=== PATIENT | male | born 1955 | race African-American/Black ===

== ENCOUNTER 2018-10-18 16:15 | Inpatient (IN) ==
[2018-10-18] MEDS ORDERED: CARDIZEM IV ONE (16:27)
[2018-10-18] MEDS ORDERED: ASPIRIN PO ONE (16:27)
[2018-10-18] MEDS ORDERED: SODIUM CHLORIDE 0.9% INJ ONE (16:44)
[2018-10-18] MEDS ORDERED: NS 1,000 ML IV ONE (16:44)
[2018-10-18] MEDS ORDERED: PROTONIX IV ONE (16:44)
[2018-10-18 16:48] LABS: BASO# 0.01 X1000 (0.0-0.2); BASO% 0.1 % (0.0-0.8); EOS# 0.11 X1000 (0.0-0.7); EOS% 1.2 % (0.0-10.0); HEMATOCRIT 44.9 % (42.0-52.0); HEMOGLOBIN 15.4 g/dL (14.0-18.0); IMM GRAN# 0.02 X1000 (0.0-0.04); IMM GRAN% 0.2 % (0.0-0.5); LYMPH# 2.96 X1000 (1.2-3.4); LYMPH% 32.1 % (20.5-51.1); MCH 29.2 PG (27-31); MCHC 34.3 g/dL (33-37); MONO# 1.35 X1000 (0.11-0.59); MONO% 14.6 % (1.7-9.3); MPV 10.3 FL (7.4-10.4); NEUT# 4.78 X1000 (1.4-6.5); NEUT% 51.8 % (42.2-75.2); PLT 251 X1000 (130-400); RBC 5.28 XMIL (4.7-6.1); RDW 15.7 % (11.5-14.5); WBC 9.23 X1000 (4.8-10.8)
--- NOTE | 2018-10-18 16:51 | Diag Imaging Result Doc PS360 ---
EXAM: CHEST-PORTABLE INDICATION: CP TECHNIQUE: One view COMPARISON: 11/25/2014 FINDINGS: The lungs are grossly clear. There is no discrete pleural fluid collection or pneumothorax. There is cardiomegaly. Central vasculature is unremarkable. IMPRESSION: Cardiomegaly but no definite acute chest pathology by plain radiograph. Electronically signed by Damien Luis 10/18/2018 4:48 PM
[2018-10-18 17:04] LABS: AGAP 12; ALBUMIN 3.5 g/dL (3.5-5.0); ALKALINE PHOSPHATASE 208 U/L (32-122); BUN 22 mg/dL (8-22); CALCIUM 8.9 mg/dL (8.8-10.2); CHLORIDE 101 mmol/L (98-107); CK PROFILE 124 U/L (24-204); COSMO 274; CREATININE 1.3 mg/dL (0.7-1.2); ESTIMATED GFR > 60; GLUCOSE 100 mg/dL (70-104); GOT 40 U/L (10-34); GPT 26 U/L (10-44); SODIUM 135 mmol/L (136-145); TCO2 22 mmol/L (25-35); TOTAL BILIRUBIN 2.16 mg/dL (0.20-1.00)
[2018-10-18] MEDS ORDERED: LOVENOX 1 MG/KG SUBQ ONE (17:32)
--- NOTE | 2018-10-18 17:35 | PROVIDER DOCUMENTATION ---
This chart was entered by Kelly Marx Scribe, acting as scribe for Viv Quinn CRNP. HPI-Chest Pain - General Chief Complaint: Chest Pain Stated Complaint: CP,SOB,ABD PAIN Time Seen by Provider: 10/18/18 16:25 Source: patient Allergies/Adverse Reactions: Patient Allergies Allergy/AdvReac Type Severity Reaction Status Date / Time No Known Allergies Allergy Verified 10/18/18 16:40 Home Medications: Home Medication List Medication Instructions Recorded Confirmed Last Taken Type Furosemide [Lasix] 80 mg PO QAM 08/19/13 11/02/15 11/01/15 08:00 History Aspirin 81 mg PO QAM 01/27/14 11/02/15 11/01/15 08:00 History Carvedilol [Coreg] 6.25 mg PO BID 01/27/14 11/02/15 11/01/15 20:00 History Hydrocodone/Acetaminophen [[place] 1 each PO 4XDAY 11/25/14 11/02/15 11/01/15 20:00 History 10-325 Tablet] Lisinopril 40 mg PO QAM 11/25/14 11/02/15 11/01/15 08:00 History ATORVAstatin [Lipitor] 40 mg PO QHS 11/28/14 11/02/15 11/01/15 20:00 History Indomethacin 50 mg PO BID #14 capsule 01/16/15 11/02/15 11/01/15 20:00 Rx Clindamycin [Cleocin] 300 mg PO Q6HR #30 capsule 11/02/15 Unknown Rx Hydrocodone/Acetaminophen [[place] 1 each PO Q4-6H PRN PRN #20 tablet 11/02/15 Unknown Rx 10-325 Tablet] - History of Present Illness-CP Nature of Presenting Problem: 63 y/o male with history of MT in 2014 and previous stent placement presents to the ED with complaint of chest pain, SOB, and abdominal pain times three days. 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 No previous history of atrial fibrillation. Chest Pain Radiation: reports: no radiation Onset/Duration: 3 days ago Timing: still present Associated Symptoms: reports: abdominal pain, shortness of breath. denies: diaphoresis, nausea, vomiting Nitro Today/Relief: no nitro taken today Aspirin Treatment Today: no aspirin today Prior Chest Pain/Cardiac Workup: reports: heart attack (2014) Similar Symptoms Previously?: No Recently Seen Here or By Another Healthcare Provider: No Review of Systems - Adult - REVIEW OF SYSTEMS - ADULT Constitutional: denies: chills, fever, night sweats Eyes: reports: no symptoms reported Ears, Nose, Mouth & Throat: reports: no symptoms reported Cardiovascular: reports: chest pain, palpitations. denies: syncope Respiratory: reports: shortness of breath. denies: hemoptysis, wheezing Gastrointestinal: reports: abdominal pain. denies: diarrhea, nausea, vomiting Genitourinary: reports: no symptoms reported Musculoskeletal: reports: no symptoms reported Integumentary: reports: no symptoms reported Neurological: reports: no symptoms reported Psychiatric: reports: no symptoms reported Endocrine: reports: no symptoms reported Hematologic/Lymphatic: reports: no symptoms reported Allergic/Immunologic: reports: no symptoms reported All Other Systems: Reviewed and Negative Past History - Adult - PAST MEDICAL HISTORY-ADULT Review of Records: reports: Old Records Reviewed, Nursing Assessment Review, Medications Reviewed Major Childhood Illnesses: reports: denies history Cardiovascular: reports: CAD, CHF, HTN Respiratory: reports: asthma, COPD, sleep apnea Gastrointestinal: reports: denies history Obstetrical/Gynecological: reports: denies history Genitourinary: reports: denies history Musculoskeletal: reports: denies history Neurological: reports: denies history Endocrine/Immune: reports: denies history Other Conditions: reports: denies history - PRIOR SURGERIES/PROCEDURES Surgical/Procedure History: reports: cholecystectomy, cardiac stent - IMMUNIZATION STATUS Childhood Immunizations: See Nurse Assessment Flu Vaccine: See Nurse Assessment - FAMILY HISTORY Family History: reviewed, not pertinent - SOCIAL HISTORY Smoking: cigarettes, less than 1 pack/day Provider spent 3-5 mins advising pt. on dangers of tobacco.: Discussed manners to quit use, and f/u contacts for add'l counseling. Substance Use: denies Physical Exam-General - PHYSICAL EXAM-ADULT Initial Vital Signs Reviewed: Yes - CONSTITUTIONAL General Appearance: alert - HEAD, EARS, NOSE, MOUTH & THROAT HENMT: normocephalic/atraumatic, moist mucous membranes - NECK Neck: full range of motion, supple - RESPIRATORY Respiratory: lungs clear, normal breath sounds. negative: rales, rhonchi, wheezing - CARDIOVASCULAR Cardiovascular: tachycardia, other (a-fib) - GASTROINTESTINAL (ABDOMEN) Abdominal Exam: non tender, soft. negative: distended, guarding, rebound - SKIN Integumentary: normal color, warm/dry. negative: diaphoresis - NEUROLOGIC Neurologic: grossly normal - HEART Score HEART Score: History: Highly Suspicious HEART Score: ECG: Non-Specific Repolarization Disturbance/LBBB/PM HEART Score: Age: 45-65 Years HEART Score: Risk Factors for Atherosclerotic Disease: > or = 3 Risk Factors or History of Atherosclerotic Disease HEART Score: Troponin: 1-3x Normal Limit Total HEART Score:: 7 Progress - PLAN OF CARE/RESULTS Progress/Plan/Lab Results: Vital Signs - 8 hr 10/18/18 16:29 Temperature 98.2 F Pulse Rate 129 H Respiratory Rate 22 Blood Pressure 125/77 O2 Sat by Pulse Oximetry 94 L Laboratory Results - last 24 hr 10/18/18 10/18/18 10/18/18 16:29 16:29 16:29 WBC 9.23 RBC 5.28 Hgb 15.4 Hct 44.9 MCV 85.0 MCH 29.2 MCHC 34.3 RDW Std Deviation 15.7 H Plt Count 251 MPV 10.3 Immature Gran % (Auto) 0.2 Neut % (Auto) 51.8 Lymph % (Auto) 32.1 [place] % (Auto) 14.6 H Eos % (Auto) 1.2 Baso % (Auto) 0.1 Immature Gran # (Auto) 0.02 Neut # (Auto) 4.78 Lymph # (Auto) 2.96 [place] # (Auto) 1.35 H Eos # (Auto) 0.11 Baso # (Auto) 0.01 Sodium 135 L Potassium 4.0 Chloride 101 Carbon Dioxide 22 L Anion Gap 12 BUN 22 Creatinine 1.3 H Estimated GFR/1.73 m2 > 60 BUN/Creatinine Ratio 17 Glucose 100 Calculated Osmolality 274 Calcium 8.9 Total Bilirubin 2.16 H AST 40 H ALT 26 Alkaline Phosphatase 208 H Creatine Kinase 124 Troponin T Czf-I-Ahcwezelfgo Pept 2556 H Total Protein 7.0 Albumin 3.5 Globulin 3.5 Albumin/Globulin Ratio 1.0 TSH 10/18/18 10/18/18 16:29 16:29 WBC RBC Hgb Hct MCV MCH MCHC RDW Std Deviation Plt Count MPV Immature Gran % (Auto) Neut % (Auto) Lymph % (Auto) [place] % (Auto) Eos % (Auto) Baso % (Auto) Immature Gran # (Auto) Neut # (Auto) Lymph # (Auto) [place] # (Auto) Eos # (Auto) Baso # (Auto) Sodium Potassium Chloride Carbon Dioxide Anion Gap BUN Creatinine Estimated GFR/1.73 m2 BUN/Creatinine Ratio Glucose Calculated Osmolality Calcium Total Bilirubin AST ALT Alkaline Phosphatase Creatine Kinase Troponin T 0.106 H Vua-W-Kmryqzoqoxr Pept Total Protein Albumin Globulin Albumin/Globulin Ratio TSH 0.01 L Orders Category Date Time Status Saline Loc NOW Care 10/18/18 16:26 Active CHEST-PORTABLE [RAD] Stat Exams 10/18/18 16:27 Completed CBC WITH ELECTRONIC DIFF [HEME] Stat Lab 10/18/18 16:29 Completed CK PROFILE [SP CHEM] Stat Lab 10/18/18 16:29 Completed COMPREHENSIVE METABOLIC PANEL [CHEM] Stat Lab 10/18/18 16:29 Completed PRO B-NATRIURETIC PEPTIDE Stat Lab 10/18/18 16:29 Completed TROPONIN T Stat Lab 10/18/18 16:29 Completed TSH Stat Lab 10/18/18 16:29 Completed URINALYSIS W/POSS RFLX CULT [URINALYSIS] Stat Lab 10/18/18 16:26 Uncollected 0.9% Sodium Chloride Inj [Ns] 1,000 ml Med 10/18/18 16:44 Discontinued IV KVO mls/hr Aspirin Med 10/18/18 16:27 Discontinued 325 mg PO NOW ONE Diltiazem [Cardizem] Med 10/18/18 16:27 Discontinued 10 mg IV NOW ONE Pantoprazole [Protonix] Med 10/18/18 16:44 Discontinued 40 mg IV NOW ONE Sodium Chloride 0.9% Med 10/18/18 16:44 Discontinued 10 ml INJ NOW ONE EKG [EKG] Stat Ther 10/18/18 16:26 Ordered Laboratory Tests 10/18/18 10/18/18 10/18/18 16:29 16:29 16:29 WBC 9.23 RBC 5.28 Hgb 15.4 Hct 44.9 MCV 85.0 MCH 29.2 MCHC 34.3 RDW Std Deviation 15.7 H Plt Count 251 MPV 10.3 Immature Gran % (Auto) 0.2 Neut % (Auto) 51.8 Lymph % (Auto) 32.1 [place] % (Auto) 14.6 H Eos % (Auto) 1.2 Baso % (Auto) 0.1 Immature Gran # (Auto) 0.02 Neut # (Auto) 4.78 Lymph # (Auto) 2.96 [place] # (Auto) 1.35 H Eos # (Auto) 0.11 Baso # (Auto) 0.01 Sodium 135 L Potassium 4.0 Chloride 101 Carbon Dioxide 22 L Anion Gap 12 BUN 22 Creatinine 1.3 H Estimated GFR/1.73 m2 > 60 BUN/Creatinine Ratio 17 Glucose 100 Calculated Osmolality 274 Calcium 8.9 Total Bilirubin 2.16 H AST 40 H ALT 26 Alkaline Phosphatase 208 H Creatine Kinase 124 Troponin T Swh-I-Wkawpewnsvl Pept 2556 H Total Protein 7.0 Albumin 3.5 Globulin 3.5 Albumin/Globulin Ratio 1.0 TSH 10/18/18 10/18/18 16:29 16:29 WBC RBC Hgb Hct MCV MCH MCHC RDW Std Deviation Plt Count MPV Immature Gran % (Auto) Neut % (Auto) Lymph % (Auto) [place] % (Auto) Eos % (Auto) Baso % (Auto) Immature Gran # (Auto) Neut # (Auto) Lymph # (Auto) [place] # (Auto) Eos # (Auto) Baso # (Auto) Sodium Potassium Chloride Carbon Dioxide Anion Gap BUN Creatinine Estimated GFR/1.73 m2 BUN/Creatinine Ratio Glucose Calculated Osmolality Calcium Total Bilirubin AST ALT Alkaline Phosphatase Creatine Kinase Troponin T 0.106 H Cup-I-Ztixgdbytxg Pept Total Protein Albumin Globulin Albumin/Globulin Ratio TSH 0.01 L Discussed results and plan of care with patient. Patient agrees with plan and verbalizes understanding. Result Diagrams: 10/18/18 16:29 10/18/18 16:29 - REASSESSMENT Reassessment #1 Time Reassessed: 17:00 Status: improving Reassessment Comment: The pat was given Cardizem with improvement in pain - EKG 1 Time of EKG reading by physician:: 16:20 EKG Read and Signed by:: Carlos Rider EKG Interpretation (*Must complete 3 of following elements*): Abnormal Rate: 121 Rhythm: afib with RVR [place]: left Comments: inferior and anteroseptal infarcts age undetermined - XRAY 1 XRAY Study: Chest (EXAM: CHEST-PORTABLE INDICATION: CP TECHNIQUE: One view COMPARISON: 11/25/2014 FINDINGS: The lungs are grossly clear. There is no discrete pleural fluid collection or pneumothorax. There is cardiomegaly. Central vasculature is unremarkable. IMPRESSION: Cardiomegaly but no definite acute chest pathology by plain radiograph. Electronically signed by Damien Luis 10/18/2018 4:48 PM) - CONSULTS/PCP/HOSPITALIST Notification #1 *Consult/PCP/Hospitalist*: Dr. Naik Time Discussed: 17:30 Reason/Comments: Consult Consult Disposition: Admit (Admit to hospitilist give ASA and Lovenox) #2 Consult: Dr. Lauren Time Discussed: 17:33 Reason/Comments: Admission Consult Disposition: Will see in ED, Admit Departure - Departure Date of Disposition Decision: 10/18/18 Time of Disposition Decision: 17:33 DIAGNOSIS: Atrial fibrillation with rapid ventricular response, Hyperthyroidism, Hyperbilirubinemia Chest pain Qualifiers: Chest pain type: unspecified Qualified Code(s): R07.9 - Chest pain, unspecified Disposition: ADMITTED INPATIENT 09 Certified Medical Emergency: Emergent Condition: Serious Referrals and Follow-Ups: None,PCP [Primary Care Provider] - - Critical Care Note This patient required my direct & personal management of CC.: Yes Total Time (mins): 32 Critical Care Statement: This patient required my direct personal management to treat or rule out processes, the absence of which, could potentiallly result in sudden, clinically significant life or limb threatening deterioration. Attestation - Physician/ GUZMAN Attestation Patient care was provided by Advanced Practice Provider:: Yes Advanced Practice Provider:: Viv Quinn Advanced Practice Provider documentation review:: The Mid-level provider documentation, treatment plan and medical decision making was reviewed by the physician who agrees with all treatment and medical decision making by the [facility]. The physician spent face to face time with patient:: No Advanced Practice Provider documentation review:: Supervising physician onsite and consulted in the evaluation and care of this patient. The physician did not have a face to face encounter with the patient. This chart was documented by the indicated scribe, (Kelly Marx, Cecy) and accurately reflects the services I performed and decisions made by me, Viv Quinn CRNP, as attested by the provider's signature.
[2018-10-18] MEDS ORDERED: LOVENOX SUBQ ONE (17:45)
--- NOTE | 2018-10-18 17:51 | EKG Report ---
Test Performed on : 10/18/2018 4:18:44 PM Test Reason : CP Blood Pressure : / mmHG Vent. Rate : 121 BPM Atrial Rate : 153 BPM P-R Int : 000 ms QRS Dur : 072 ms QT Int : 326 ms P-R-T Axes : 000 -61 061 degrees QTc Int : 462 ms Atrial fibrillation. with rapid ventricular response. with premature ventricular or aberrantly conduc rody complexes. Left axis deviation Inferior infarct , age undetermined Anteroseptal infarct (cited on or before 13-MAR-2013) Abnormal ECG When compared with ECG of 25-NOV-2014 13:22, Atrial fibrillation. has replaced Sinus rhythm. Vent. rate has increased BY 45 BPM Inferior infarct is now present Nonspecific T wave abnormality now evident in Lateral leads Unconfirmed Result
--- NOTE | 2018-10-18 18:30 | HISTORY AND PHYSICAL ---
PRIMARY CARE PHYSICIAN: Mr. William is a 63-year-old who see Dr. Ken Allen. HISTORY OF PRESENT ILLNESS: This is a 63-year-old gentleman past medical history includes asthma, possible COPD, congestive heart failure, hypertension, chronic lower back pain, anxiety, insomnia, obstructive sleep apnea, and history of coronary artery disease. He has had a couple stents placed, he says about 3 years ago. He presents with chest pain, but he says he has been feeling bad for 3 or 4 days. Describes swelling in his leg, swelling in his abdomen. The swelling apparently has gone down in his legs, but he just does not feel good, he feels tired and has a little bit of dyspnea with exertion, so he came to the emergency room. Denies fever or chills, pleuritic pain. Denies any hematochezia or gross hematuria or dysuria. No nausea or vomiting. PAST MEDICAL HISTORY: 1. Congestive heart failure. 2. Hypertension. 3. Anxiety. 4. Insomnia. 5. Chronic low back pain. 6. Obstructive sleep apnea. PAST SURGICAL HISTORY: None. 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 He moved to [place] back in 2013. He smokes about 1 pack a day. He says he has cut down on that. FAMILY HISTORY: Both parents are . Positive for hypertension, heart disease. ALLERGIES: No known drug allergies. REVIEW OF SYSTEMS: General: He is not aware of any weight gain or loss, but he feels like he has built up fluid in his abdomen and in his lower extremities. HEENT: No change in visual or hearing acuity. Respiratory: No increased work of breathing or dyspnea. Cardiovascular: No chest pain or tachy palpitation until today when he noticed some chest pressure in the midsternum. No radiation to his jaw or arm but did feel like pressure. GI and : No change in bowels or gross hematuria. Endocrinologic and hematologic: No significant history. Musculoskeletal and Neurologic: No focal complaints. PHYSICAL EXAMINATION: GENERAL: He is awake, alert, pleasant, oriented x3. VITAL SIGNS: Temp 98.2 degrees, pulse 129, respirations 22, appears to be in atrial fibrillation on monitor. Blood pressure 125/77. HEENT: Pupils are equal and round. LUNGS: Clear in all lung weaver. CARDIOVASCULAR: Regular rhythm and rate without murmur or S3. ABDOMEN: Soft. He does feel like it is distended. I cannot appreciate any true ascites or organomegaly. EXTREMITIES: With trace edema from ankle to mid vang, symmetrical. He has distended neck veins and CVP estimate about 12 cm from left atrium. LABORATORY DATA: White count 9230, hematocrit 44 platelet count 251,000. Sodium 135, potassium 4.0, chloride 101, BUN 22, creatinine 1.3, calcium 8.9. Troponin is 0.016, mild elevation. ProBNP is 2556, albumin is 3.5, TSH is 0.01. IMAGING: His chest x-ray: Cardiomegaly, but no definite acute chest pathology. Looking back on his old orders, I think he has been treated for hyperthyroidism. He had extremity venous study done on 08/23/2013. No evidence of deep or superficial venous thrombosis. He had pulmonary angiogram done in August 2013. At that time he had probable segmental pulmonary embolus, possible trace pulmonary edema, acute bilateral for rib fractures. Myocardial perfusion scan done August 2013: Abnormal post stress myocardial perfusion scan suggestive of inducible ischemia, moderate severity involving small to medium size segment of the basilar inferior lateral wall. The left ventricle. Mild impairment of eft ventricular systolic function. Estimated ejection fraction 45%. He had nuclear heart scan. Impression was probable ischemia. He had heart catheterization done in August: Has moderate size, moderate in severity, inferolateral defect. Nuclear scan appears to be reversible. Had a large 1st obtuse marginal with significant lesion in addition had 3rd obtuse marginal that would appear to be stubbed off and reconstitutes distally and I believe these are the places he had stents placed. Echocardiogram done in February 2014: He had estimated ejection fraction 45% to 50 percent, mild global hypokinesis. No significant valvular dysfunction. ASSESSMENT AND PLAN: 1. Chest pain in a man who has known coronary artery disease and it sounds like it could very well could be consistent with angina. We will check another echocardiogram in the morning. He has mild elevation of troponin, but not clearly defined. 2. Appears he was treated for hyperthyroidism, so we will check his T4 and TSH. Looking at his medication, I do not see where he is on any thyroid medications. 3. He has mild congestive heart failure with reduced ejection fraction, borderline. So we will recheck his echo and look at his left ventricular function. 4. He has atrial fibrillation with rapid ventricular rate. I think he will tolerate a little beta avila, Lopressor 25 mg 3 times a day q.8. I asked Cardiology to help evaluate. 5. Hypercholesterolemia. Recheck his lipid profile. He is on Lipitor now. cc: Kai Lauren MD MTDD
[2018-10-18 19:41] LABS: URINE SOURCE CLEAN CATCH
[2018-10-18 19:43] LABS: BILIRUBIN URINE NEGATIVE (NEGATIVE); BLOOD URINE NEGATIVE (NEGATIVE); COLOR YELLOW; GLUCOSE URINE NEGATIVE (NEGATIVE); KETONE URINE NEGATIVE (NEGATIVE); LEUKOCYTES URINE NEGATIVE (NEGATIVE); NITRITE URINE NEGATIVE (NEGATIVE); PH URINE 5.5; PROTEIN URINE 30 mg/dL (NEGATIVE); SP GRAVITY URINE 1.013; TURBIDITY URINE CLEAR (CLEAR); UR EPITHELIAL CELLS <10 /HPF (<10); URINE BACTERIA NEGATIVE /HPF; URINE RBC <10 /HPF (<10); URINE WBC <10 /HPF (<10); UROBILINOGEN URINE 4 mg/dL (NORMAL)
[2018-10-18] MEDS ORDERED: TYLENOL PO PRN (23:03)
[2018-10-18] MEDS ORDERED: ZOFRAN IV PRN (23:03)
[2018-10-19] MEDS: LOPRESSOR PO SCH ×2 (00:04→08:48)
[2018-10-19] MEDS: LOVENOX SUBQ SCH ×2 (04:50→21:12)
[2018-10-19 07:14] LABS: BASO# 0.01 X1000 (0.0-0.2); BASO% 0.1 % (0.0-0.8); EOS# 0.03 X1000 (0.0-0.7); EOS% 0.3 % (0.0-10.0); HEMATOCRIT 42.9 % (42.0-52.0); HEMOGLOBIN 14.8 g/dL (14.0-18.0); IMM GRAN# 0.05 X1000 (0.0-0.04); IMM GRAN% 0.4 % (0.0-0.5); LYMPH# 2.24 X1000 (1.2-3.4); LYMPH% 18.7 % (20.5-51.1); MCH 29.4 PG (27-31); MCHC 34.5 g/dL (33-37); MCV 85.3 FL (81-99); MONO# 1.89 X1000 (0.11-0.59); MONO% 15.8 % (1.7-9.3); MPV 10.9 FL (7.4-10.4); NEUT# 7.78 X1000 (1.4-6.5); NEUT% 64.7 % (42.2-75.2); PLT 240 X1000 (130-400); RBC 5.03 XMIL (4.7-6.1); RDW 16.1 % (11.5-14.5)
[2018-10-19 07:30] LABS: CALCIUM 8.7 mg/dL (8.8-10.2); CREATININE 1.8 mg/dL (0.7-1.2); POTASSIUM 4.3 mmol/L (3.5-5.1)
--- NOTE | 2018-10-19 11:46 | CARDIOLOGY CONSULTATION ---
DATE: 10/19/2018 CHIEF COMPLAINT ON PRESENTATION: Chest pain/shortness of breath. HISTORY OF PRESENT ILLNESS: Mr. espinoza is a 63-year-old black male with a history of coronary artery disease and cardiomyopathy, who has not been back to see me since 2016. He presented for complaints of chest pain. This has been going on for the last 3 to 4 days with some heart racing and exertional shortness of breath. The patient reports compliance with his medications at home. There is no orthopnea. He presented and was found to be in atrial fibrillation which was new onset for the patient. PAST MEDICAL HISTORY: Significant for: 1. Coronary artery disease with previous intervention in August 2013; this was to a marginal with a bare metal stent done at the time. The original cardiac catheterization showed a normal left main, the LAD had mild to moderate diffuse disease in the proximal portion of the LAD, the midvessel had minimal luminal irregularities, the distal vessel appeared to have minimal luminal irregularities of well. There was a first diagonal that was small with an 80% to 90% proximal lesion. The circumflex originated from the left main. There was a very large 1st OM that had an 80% proximal lesion. The remainder of that vessel have minor luminal irregularities. The continuation of the circumflex had moderate disease up to 60% in the midportion. There was a 3rd OM that appeared to be stubbed off and reconstituted with distal [id number] collaterals. The right coronary had minor luminal irregularities in the proximal and mid and distal vessel. The patient has had persistent low ejection fractions in the 40% to 50% range. 2. Hypertension. 3. Hyperlipidemia. 4. Obstructive sleep apnea. SOCIAL HISTORY: Patient was born in [place] and grew up in [place]. 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 Smokes about 1 pack per day. FAMILY HISTORY: Significant for hypertension and heart disease. REVIEW OF SYSTEMS: A 10 system review of systems is negative, except for those things mentioned in the HPI. PHYSICAL EXAMINATION: He is afebrile, his heart rate is 97, his blood pressure is 132/85. Generally, he is in no acute distress.HEENT: Oropharynx is moist with normal dentition. His eye examination shows evidence for exophthalmos, pink conjunctivae, white sclerae. His neck examination shows no obvious thyromegaly or thyroid tenderness. Cardiovascularly, he sounds to be in an irregularly irregular rhythm. He has no obvious murmurs. He has no S3. He has no lower extremity edema. His chest exam sounds clear. He has no increased work of breathing. His abdomen is soft, nontender, nondistended. He has no obvious organomegaly. His skin exam is warm and dry throughout without any rashes. Neurologically, he is moving all extremities well. He has no lateralizing deficits. Psychiatric: He sounds alert, oriented, and pleasant. He has normal mood and affect. PERTINENT DATA: The patient has a white count of 12, his hematocrit is 42, his platelet count is 240,000. His sodium is 133, potassium 4.3, BUN 30, creatinine is 1.8 (this is a rise from 12 and 1.3, and on September 11 they were 12 and 0.7). His cardiac enzymes are elevated; his initial troponin was 0.106, subsequently it increased to 0.159. His proBNP is 2556. His TSH on the first was 0.01 with a free T4 of 4.36. Notably the patient has had significantly low TSH is since at least February 2016. ASSESSMENT: Mr. William is a 63-year-old gentleman who presents with rapid atrial fibrillation and was found to have a minor troponin elevation. PLAN: We will likely proceed with cardiac catheterization in this patient to delineate his coronary anatomy, knowing his previous disease. He continues to smoke. His hyperthyroidism is certainly making his atrial fibrillation more difficult to treat. He would be a candidate for long-term anticoagulation, but we would likely pursue that route after cardiac catheterization is undertaken. We will review his echocardiogram. cc: Byron Naik MD
--- NOTE | 2018-10-19 12:27 | PROGRESS NOTE ---
DATE: 10/19/2018 SUBJECTIVE: Mr. iWlliam says he has no further chest pain. He is breathing a little better. He remains afebrile. OBJECTIVE: Temperature 97.8 degrees, pulse 91, respirations 13, and blood pressure 112/63. Pupils are equal. No distended neck veins. Lungs are clear in all lung weaver Cardiovascular regular rhythm and rate without murmur or S3. Abdomen is soft. Skin is warm and dry. ASSESSMENT AND PLAN: Chest pain in the face of known coronary artery disease and appears to have primary hyperthyroidism. Looking back, we did see where he had a thyroid uptake scan and it was essentially unremarkable. This was back in March of 2016. Cardiology has seen him. He probably needs a heart catheterization, but also needs to see Endocrinology so I think the plan is to try and get him transferred to [facility]. PHYSICAL EXAMINATION: On exam today, temperature 97.8 degrees, pulse 90, respirations 13, blood pressure and 112/63.HEENT: Pupils are equal and round. Lungs: Clear in all lung weaver. Cardiovascular: Regular rhythm and rate without murmur or S3. Abdomen: Soft. Skin: Warm and dry. Urine output is 900 mL ASSESSMENT AND PLAN: 1. Rapid atrial fibrillation found to have minor troponin elevation. 2. Chest pain suspicious for coronary insufficiency. 3. Primary hyperparathyroidism. 4. I think the plan is to try and get him to [facility]. LABORATORY: Troponin is 0.127, the next one was 0.159. CK was 109 and 114. T4 was 4.36. TSH was 0.01. cc: Kai Lauren MD
--- NOTE | 2018-10-19 14:36 | ECHO REPORT ---
ORDER DATE: 10/19/2018 INDICATIONS: Chest pain, atrial fibrillation, elevated troponin. FINDINGS: 1. Right atrium is severely enlarged. 2. Moderate to severe tricuspid regurgitation. RV systolic pressure of 24. 3. The right ventricle is dilated with severe reduction in RV systolic function. 4. No significant pulmonic insufficiency. 5. Severe left atrial enlargement with a volume index of 61. 6. No mitral prolapse. There is moderate mitral regurgitation with an eccentric jet of mitral regurgitation. No mitral stenosis. 7. Dilated left ventricle, end-diastolic dimension of 5.7. Mild left ventricular hypertrophy with a posterior and interventricular septal wall thickness is 0.8 and 1.2 cm respectively. Severe reduction in LV systolic function with an estimated ejection fraction of 15% and global hypokinesis. 8. Aortic valve opens well, trileaflet. No evidence of stenosis or insufficiency. 9. Aorta appears normal in visualized segments. 10. No pericardial effusion seen. cc: MD Traci Reese CRNP
--- NOTE | 2018-10-19 16:48 | DISCHARGE SUMMARY ---
ADMISSION DATE: 10/18/2018 DISCHARGE DATE: Anticipate to be discharged on 10/19 or 10/20/2018 This is a 63-year-old patient of Dr. Ken Allen. Past medical history includes asthma, possible COPD, congestive heart failure, hypertension, chronic lower back pain, anxiety, insomnia, obstructive sleep apnea, history of coronary artery disease, he has had a couple stents placed about 3 years ago. He presented with chest pain which sounds like pressure in the midchest. No radiation to his arm or jaw. He also complained of swelling in his legs for the last 3 or 4 days, little bit of swelling in his tummy, feels tired, increased dyspnea on exertion. PAST MEDICAL HISTORY: 1. Again congestive heart failure. 2. Hypertension. 3. Anxiety. 4. Insomnia. 5. Chronic lower back pain. 6. Chronic sleep apnea. So admitted with chest pain. He has known coronary artery disease and wanted to check an echocardiogram and look at his left ventricular function. #2 congestive heart failure with systolic dysfunction and #3 atrial fibrillation with rapid ventricular rate so we put him on a little bit of Lopressor, checked his cardiac enzymes. Is also noted that he has had primary hyperthyroidism now for several months. Echocardiogram showed right atrium severely enlarged, moderate to severe tricuspid regurgitation, right ventricle dilated with reduction in RV systolic function, severe left atrial enlargement, dilated left ventricle dimension of 5.7 cm, he has mild left ventricular hypertrophy with posterior and intraventricular septal wall thickness 0.8 and 1.2 cm respectively, severe reduction in LV systolic function, estimated ejection fraction 15% with global hypokinesis. Dr. Naik had evaluated, he would like to get him to [place] believes he would benefit from heart catheterization but also treatment for his primary hyperthyroidism so plans are to transfer him to [facility]. Will continue current medications, is getting acetaminophen 650 mg q.6 hours p.r.n., aspirin 81 mg a day, Lipitor 40 mg a day, Coreg 6.25 mg b.i.d., Lovenox 80 mg subcu q.12. cc: Kai Lauren MD
[2018-10-19] MEDS ORDERED: MILK OF MAGNESIA PO ONE (17:00)
[2018-10-19] MEDS ORDERED: DULCOLAX PR ONE (17:01)
[2018-10-19] MEDS ORDERED: COREG PO SCH (21:00)
[2018-10-19] MEDS ORDERED: LIPITOR PO SCH (21:00)
[2018-10-20 07:29] VITALS: BP 112/87
[2018-10-20] MEDS ORDERED: ASPIRIN PO SCH (09:00)
== END 2018-10-20 09:49 | disposition short-term general hospital (02) | DRG 309 ==
LOC: ED 16:15 → EDIPHOLD 18:59 → SUATTDRO 18:59 → 2N 21:09
PROVIDERS: ATTEND Internal Medicine

== ENCOUNTER 2019-03-25 05:38 | Inpatient (IN) ==
--- NOTE | 2019-03-25 05:57 | PROVIDER DOCUMENTATION ---
HPI-Respiratory General - General Chief Complaint: Shortness of Breath Stated Complaint: SOB Time Seen by Provider: 03/25/19 05:39 Source: patient Allergies/Adverse Reactions: Patient Allergies Allergy/AdvReac Type Severity Reaction Status Date / Time No Known Allergies Allergy Verified 03/25/19 07:27 Home Medications: Home Medication List Medication Instructions Recorded Confirmed Last Taken Type Carvedilol [Coreg] 6.25 mg PO BID 01/27/14 03/25/19 10/17/18 09:00 History Lisinopril 40 mg PO QAM 11/25/14 03/25/19 10/17/18 08:00 History ATORVAstatin [Lipitor] 40 mg PO QHS 11/28/14 03/25/19 10/17/18 19:00 History Acetaminophen [Tylenol] 650 mg PO Q6H PRN PRN tab 10/19/18 03/25/19 Unknown Rx Aspirin 81 mg PO DAILY chewtab 10/19/18 03/25/19 Unknown Rx Enoxaparin [Lovenox] 80 mg SUBQ Q12H syringe 10/19/18 03/25/19 Unknown Rx Ondansetron [Zofran] 4 mg IV Q4H PRN PRN vial 10/19/18 03/25/19 Unknown Rx - History of Present Illness-Resp Nature of Presenting Problem: 64 y/o BM c/o sudden SOB 1-2 hrs before coming to ER that made him collapse at home. Pt notes that he has hx of CHF and asthma but denies missing any of his medications. Quality of Pain: reports: none Severity in ED: reports: moderate Onset/Duration: reports: 1-3 hours ago Timing: reports: still present Cough Quality/Degree: reports: moderate, dry cough Episode Frequency: occasional episodes Current Respiratory Medication Therapy: Initiated see nurses note Modifying Factors: improves with: coughing, oxygen Associated Symptoms: reports: cough, shortness of breath Similar Symptoms Previously?: Yes Recently seen or treated by another doctor?: No Review of Systems - Adult - REVIEW OF SYSTEMS - ADULT Constitutional: reports: no symptoms reported, see HPI Eyes: reports: no symptoms reported, see HPI Ears, Nose, Mouth & Throat: reports: no symptoms reported, see HPI Cardiovascular: reports: no symptoms reported, see HPI Respiratory: reports: see HPI, cough, shortness of breath Gastrointestinal: reports: no symptoms reported, see HPI Genitourinary: reports: no symptoms reported, see HPI Musculoskeletal: reports: no symptoms reported, see HPI Integumentary: reports: no symptoms reported, see HPI Neurological: reports: no symptoms reported, see HPI Psychiatric: reports: no symptoms reported, see HPI Endocrine: reports: no symptoms reported, see HPI Hematologic/Lymphatic: reports: no symptoms reported, see HPI Allergic/Immunologic: reports: no symptoms reported, see HPI All Other Systems: Reviewed and Negative Past History - Adult - PAST MEDICAL HISTORY-ADULT Review of Records: reports: Nursing Assessment Review, Medications Reviewed, Social history reviewed & non-contributory. Major Childhood Illnesses: reports: denies history Cardiovascular: reports: CAD, CHF, HTN Respiratory: reports: asthma, COPD, sleep apnea Gastrointestinal: reports: denies history Obstetrical/Gynecological: reports: denies history Genitourinary: reports: denies history Musculoskeletal: reports: denies history Neurological: reports: denies history Endocrine/Immune: reports: denies history Other Conditions: reports: denies history - PRIOR SURGERIES/PROCEDURES Surgical/Procedure History: reports: cholecystectomy, cardiac stent - IMMUNIZATION STATUS Childhood Immunizations: See Nurse Assessment Flu Vaccine: See Nurse Assessment - FAMILY HISTORY Family History: reviewed, not pertinent Physical Exam-General - PHYSICAL EXAM-ADULT Initial Vital Signs Reviewed: Yes - CONSTITUTIONAL General Appearance: appears well, alert, no apparent distress - EYES Eyes: PERRL/EOMI - HEAD, EARS, NOSE, MOUTH & THROAT HENMT: normocephalic/atraumatic, moist mucous membranes, normal ENT inspection - NECK Neck: non-tender, full range of motion, supple, normal inspection - RESPIRATORY Respiratory: chest non-tender, no pleuratic chest pain, no respiratory distress, no accessory muscle use, wheezing (B), increased rate - CARDIOVASCULAR Cardiovascular: normal peripheral pulses, regular rate, rhythm, no edema, no gallop, no JVD, no murmur - GASTROINTESTINAL (ABDOMEN) Abdominal Exam: normal bowel sounds, non tender, soft, no organomegaly, no pulsatile mass - LYMPHATIC Lymphatic: no adenopathy - MUSCULOSKELETAL Back Exam: normal inspection, no CVA tenderness, no vertebral tenderness Extremity: normal range of motion, non-tender, normal inspection, no pedal edema , no calf tenderness, normal capillary refill - SKIN Integumentary: normal color, normal turgor - NEUROLOGIC Neurologic: loan processor II-XII nml as tested, grossly normal, no motor/sensory deficits - PSYCHIATRIC Psych/Mental Status: normal mood/affect, normal thought content, normal thought process, oriented x 3 Progress - PLAN OF CARE/RESULTS Progress/Plan/Lab Results: Vital Signs - 8 hr 03/25/19 05:38 03/25/19 07:20 03/25/19 08:02 Temperature 98.0 F 97.4 F L Pulse Rate 102 H 78 77 Respiratory Rate 19 15 20 Blood Pressure 125/85 98/74 101/74 O2 Sat by Pulse Oximetry 99 100 94 L 03/25/19 08:30 03/25/19 09:17 Temperature Pulse Rate 77 73 Respiratory Rate 19 20 Blood Pressure 70/32 77/61 O2 Sat by Pulse Oximetry 100 100 03/25/19 06:08 Influenza Screen - Final Nasopharyngeal Laboratory Results - last 24 hr 03/25/19 03/25/19 03/25/19 06:08 06:08 06:08 WBC 8.55 RBC 5.38 Hgb 16.8 Hct 51.3 MCV 95.4 MCH 31.2 H MCHC 32.7 L RDW Std Deviation 18.8 H Plt Count 231 MPV 11.1 H Immature Gran % (Auto) 0.5 Neut % (Auto) 68.6 Lymph % (Auto) 19.3 L Mccracken % (Auto) 10.9 H Eos % (Auto) 0.5 Baso % (Auto) 0.2 Immature Gran # (Auto) 0.04 Neut # (Auto) 5.87 Lymph # (Auto) 1.65 Mccracken # (Auto) 0.93 H Eos # (Auto) 0.04 Baso # (Auto) 0.02 Specimen Type Sample Site pH pCO2 pO2 HCO3 Base Excess Oxyhemoglobin ABG O2 Sat (Calculated) ABG O2 Saturation ABG Carboxyhemoglobin ABG Methemoglobin Kai Test A-a O2 Difference Total Hemoglobin Lactate Liter Flow Blood Gas Modality FiO2 % Sodium 135 L Potassium 4.5 Chloride 102 Carbon Dioxide 22 L Anion Gap 11 BUN 15 Creatinine 1.6 H Estimated GFR/1.73 m2 53 BUN/Creatinine Ratio 9 Glucose 97 Calculated Osmolality 271 Calcium 7.9 L Total Bilirubin 2.18 H AST 42 H ALT 17 Alkaline Phosphatase 130 H Troponin T High Sens Oux-P-Ibaoeudrgop Pept 2620 H Total Protein 7.5 Albumin 3.0 L Globulin 4.5 Albumin/Globulin Ratio 0.7 03/25/19 03/25/19 06:08 06:33 WBC RBC Hgb Hct MCV MCH MCHC RDW Std Deviation Plt Count MPV Immature Gran % (Auto) Neut % (Auto) Lymph % (Auto) Mccracken % (Auto) Eos % (Auto) Baso % (Auto) Immature Gran # (Auto) Neut # (Auto) Lymph # (Auto) Mccracken # (Auto) Eos # (Auto) Baso # (Auto) Specimen Type ARTERIAL Sample Site R RADIAL pH 7.36 pCO2 36 pO2 97 HCO3 21.4 Base Excess -4.4 L Oxyhemoglobin 95.8 ABG O2 Sat (Calculated) 21.9 ABG O2 Saturation 98.9 ABG Carboxyhemoglobin 2.20 ABG Methemoglobin 0.9 Kai Test YES A-a O2 Difference 115.0 Total Hemoglobin 16.2 Lactate 1.60 Liter Flow 4.0 Blood Gas Modality CANNULA FiO2 % 36.0 Sodium Potassium Chloride Carbon Dioxide Anion Gap BUN Creatinine Estimated GFR/1.73 m2 BUN/Creatinine Ratio Glucose Calculated Osmolality Calcium Total Bilirubin AST ALT Alkaline Phosphatase Troponin T High Sens 44 H Eql-G-Fopgnpeccxo Pept Total Protein Albumin Globulin Albumin/Globulin Ratio Orders Category Date Time Status Nursing- Obtain EKG ONCE Care 03/25/19 05:40 Active CHEST-1 VIEW [RAD] Stat Exams 03/25/19 05:[address] ABDOMEN/PELVIS W/O CONTRAST [CT] Stat Exams 03/25/19 07:43 Completed ABG [RESP] Routine Lab 03/25/19 06:33 Completed CBC WITH ELECTRONIC DIFF [HEME] Stat Lab 03/25/19 06:08 Completed COMPREHENSIVE METABOLIC PANEL [CHEM] Stat Lab 03/25/19 06:08 Completed INFLUENZA SCREEN A/B Stat Lab 03/25/19 06:08 Completed PRO B-NATRIURETIC PEPTIDE Stat Lab 03/25/19 06:08 Completed PROTIME WITH INR [COAG] Stat Lab 03/25/19 07:01 Ordered PTT [COAG] Stat Lab 03/25/19 07:01 Ordered TROPONIN T HIGH SENSITIVITY Stat Lab 03/25/19 06:08 Completed 0.9% Sodium Chloride Inj [Ns] 250 ml Med 03/25/19 08:45 Active Phenylephrine [Tramaine-Synephrine] 50 mg IV As Directed mls/hr EKG [EKG] Stat Ther 03/25/19 05:40 Draft Transfer/Admit Order [TRANSFER] Routine Transfer 03/25/19 09:30 Ordered Result Diagrams: 03/25/19 06:08 03/25/19 06:08 - REASSESSMENT Reassessment #1 Time Reassessed: 08:35 Status: worsening (LAB AND X-RAYS COMING BACK, RESP RATE 40/MIN ON RM AIR TO MAINATIN P OX 95%, BP DOWN TO 70/, ORDERED NEOSYNEPHRINE. PT REMAINS ALERT. NOTE ASCITES ON CT) - EKG 1 Time of EKG reading by physician:: 05:50 EKG Read and Signed by:: Robert Jimenez EKG Interpretation (*Must complete 3 of following elements*): Abnormal Rate: 79 Rhythm: NSR [place]: left QRS: poor R wave progression (SHABBIR SPETAL INFARCT , AGE UNKNOWN, LONG QT, LAD,) OK Interval: normal ST Wave: non-specific ST changes - XRAY 1 XRAY Study: Chest Impression: See EMR Report (CARDIOMEGALLY) - CONSULTS/PCP/HOSPITALIST Notification #1 *Consult/PCP/Hospitalist*: RANGEL GAN Time Discussed: 09:31 Consult Disposition: Admit - CHANGE OF SHIFT REPORT (ED Provider) 1 Report Given and Care Transferred to:: Dr Edwards Time of Transfer: 07:00 Items Pending: Labs, XRAY Results Departure - Departure Date of Disposition Decision: 03/25/19 Time of Disposition Decision: 09:29 DIAGNOSIS: Hypotension, SOB (shortness of breath), CHF (congestive heart failure) Disposition: ADMITTED INPATIENT 09 Certified Medical Emergency: Emergent Condition: Fair Referrals and Follow-Ups: Ken Allen [Primary Care Provider] - Discharge Education: Steps to Quit Smoking - Critical Care Note This patient required my direct & personal management of CC.: Yes Total Time (mins): 45 Critical Care Statement: This patient required my direct personal management to treat or rule out processes, the absence of which, could potentiallly result in sudden, clinically significant life or limb threatening deterioration. Attestation - Physician/ GUZMAN Attestation The physician spent face to face time with patient:: Yes Advanced Practice Provider documentation review:: Supervising physician onsite and consulted in the evaluation and care of this patient. The physician did have a face to face encounter with the patient.
--- NOTE | 2019-03-25 06:00 | EKG Report ---
Test Performed on : 03/25/2019 05:50:26 AM Test Reason : sob Blood Pressure : / mmHG Vent. Rate : 079 BPM Atrial Rate : 079 BPM P-R Int : 172 ms QRS Dur : 080 ms QT Int : 450 ms P-R-T Axes : 071 -63 060 degrees QTc Int : 516 ms Normal sinus rhythm. Possible Left atrial enlargement Left axis deviation Inferior infarct (cited on or before 19-AUG-2013) Anteroseptal infarct (cited on or before 13-MAR-2013) Prolonged QT Abnormal ECG When compared with ECG of 18-OCT-2018 16:18, Sinus rhythm. has replaced Atrial fibrillation. Vent. rate has decreased BY 42 BPM Unconfirmed Result
--- NOTE | 2019-03-25 06:22 | Diag Imaging Result Doc PS360 ---
CHEST-1 VIEW - 03/25/2019 INDICATION: sob COMPARISON: 10/18/2018 FINDINGS: Stable moderate cardiomegaly. There are increased reticulonodular infiltrates in the lung bases bilaterally, left greater than right. No pneumothorax or pleural effusion. IMPRESSION: Cardiomegaly. Fine interstitial infiltrates in the lung bases suggestive of interstitial pulmonary edema. Electronically signed by Jefry Montiel 03/25/2019 6:19 AM
[2019-03-25 06:24] LABS: BASO# 0.02 X1000 (0.0-0.2); BASO% 0.2 % (0.0-0.8); EOS# 0.04 X1000 (0.0-0.7); EOS% 0.5 % (0.0-10.0); HEMATOCRIT 51.3 % (42.0-52.0); HEMOGLOBIN 16.8 g/dL (14.0-18.0); IMM GRAN% 0.5 % (0.0-0.5); LYMPH# 1.65 X1000 (1.2-3.4); LYMPH% 19.3 % (20.5-51.1); MCH 31.2 PG (27-31); MCHC 32.7 g/dL (33-37); MCV 95.4 FL (81-99); MONO# 0.93 X1000 (0.11-0.59); MONO% 10.9 % (1.7-9.3); MPV 11.1 FL (7.4-10.4); NEUT# 5.87 X1000 (1.4-6.5); NEUT% 68.6 % (42.2-75.2); PLT 231 X1000 (130-400); RBC 5.38 XMIL (4.7-6.1); RDW 18.8 % (11.5-14.5); WBC 8.55 X1000 (4.8-10.8)
[2019-03-25 06:25] LABS: IMM GRAN# 0.04 X1000 (0.0-0.04)
[2019-03-25 06:39] LABS: ALLEN TEST YES; BE -4.4 mmoll (-3.0-3.0); BLOOD TYPE ARTERIAL; HCO3-(ACT) 21.4 mmoll (20.0-26.0); METHB 0.9 % (0.0-1.5); O2(CT) 21.9 mL/dL (15.0-23.0); O2HB 95.8 % (95.0-99.0); PCO2(98.6) 36 mmHg (35-45); PO2(98.6) 97 mmHg (60-100); SAMPLE BLOOD; SAO2 98.9 % (95.0-100.0); THB 16.2 g/dL (11.5-17.4); pH(98.6) 7.36 (7.35-7.45)
[2019-03-25 06:44] LABS: MODALITY CANNULA
[2019-03-25 06:46] LABS: ALB/GLOB RATIO 0.7; CALCIUM 7.9 mg/dL (8.8-10.2); CREATININE 1.6 mg/dL (0.7-1.2); POTASSIUM 4.5 mmol/L (3.5-5.1); TOTAL BILIRUBIN 2.18 mg/dL (0.20-1.00); TOTAL PROTEIN 7.5 g/dL (6.3-8.3)
--- NOTE | 2019-03-25 08:25 | Diag Imaging Result Doc PS360 ---
EXAM: CT ABDOMEN/PELVIS W/O CONTRAST INDICATION: TRAUMA TECHNIQUE: This exam was performed using automated exposure control, adjustment of mA or kV according to patient size, and/or use of iterative reconstruction technique. COMPARISON: None. FINDINGS: There are interstitial and mild airspace opacities at both lung bases most compatible with pulmonary edema. There is cardiomegaly. There has been a prior cholecystectomy. There is moderate to large volume ascites and diffuse mesenteric edema seen throughout the abdomen and pelvis. There is a 12 mm hypodensity seen at the posterior aspect of the right hepatic lobe on image 41 of series 3. It is nonspecific and too small to characterize. This statistically most likely represents a small cyst, however. The liver is grossly unremarkable as imaged with unenhanced CT, otherwise. There are calcified granulomata in the spleen. There is no splenomegaly. The pancreas is grossly unremarkable as imaged with unenhanced CT. There is bilateral adrenal gland thickening that statistically most likely represents adrenal hyperplasia or underlying adenomas. The kidneys are grossly unremarkable. The urinary bladder is largely nondistended and is unremarkable, otherwise. The appendix is normal. There is mild uncomplicated sigmoid colonic diverticulosis. No focal bowel wall thickening or bowel obstruction is identified. The remainder of the GI tract is unremarkable as imaged with unenhanced CT. There is aortoiliac atherosclerotic calcification. There is bilateral degenerative changes. There is no evidence of acute osseous abnormality. IMPRESSION: 1.Moderate to large volume ascites and diffuse mesenteric edema. 2.Cardiomegaly with mild edema at the lung bases. 3.Other incidental/nonacute findings detailed above. Electronically signed by Damien Luis 03/25/2019 8:23 AM
[2019-03-25] MEDS: NEO-SYNEPHRINE 50 MG in NS 250 ML IV SCH (09:17)
[2019-03-25 10:23] LABS: INR 1.48; PROTIME 18.2 Seconds (11.0-16.0)
[2019-03-25 10:24] LABS: PTT 34.2 Seconds (22.3-41.8)
[2019-03-25] MEDS ORDERED: SALINE LOCK IV FLUID XX ONE (11:29)
[2019-03-25] MEDS ORDERED: TYLENOL PO PRN (11:31)
--- NOTE | 2019-03-25 12:35 | HISTORY AND PHYSICAL ---
ADDENDUM: The patient was seen and examined by me face to face. The laboratory, vital signs, and images were reviewed. The patient presented to the emergency department with a chief complaint of shortness of breath that has been going on since yesterday night. As per the patient, yesterday in the afternoon, he was doing fine. His blood pressure was low in the 70s, so we have decided to put this patient on [*]. He does have a history of coronary artery disease, hypertension, hyperlipidemia, obstructive sleep apnea, and severe congestive heart failure with an ejection fraction of 15% with global hypokinesis and severely decreased right ventricular systolic function as well. After putting this patient on the [*] his blood pressure is a little bit better, and actually the vital signs are more stable. We contacted Cardiology Department to evaluate this patient, so we will wait for recommendations at this moment. It looks like he presented the last time and was evaluated on 10/19/2018 due to atrial fibrillation with RVR, and it looks like he was discharged on Lovenox therapeutic doses. Again, I will wait for final recommendations of Cardiology Department. He seems to be a little bit more stable at this moment. We discussed his advanced directive, and he wishes to be full code. I agree with the rest of the nurse practitioner's assessment and plan. Probably, this patient is going to be on dobutamine. He does have a kidney dysfunction, which seems to be about the same compared with the previous visit, but not actually his baseline. cc: Yuval Harrison MD
[2019-03-25] MEDS ORDERED: STADOL IV ONE (13:00)
--- NOTE | 2019-03-25 13:03 | HISTORY AND PHYSICAL ---
PRIMARY CARE PROVIDER: Dr. Ken Allen. RAILROAD COMMISSIONER: Dr. Byron Naik. CHIEF COMPLAINT: Shortness of breath. HISTORY OF PRESENT ILLNESS: Mr. William is a 64-year-old male with a past medical history of coronary artery disease, cardiomyopathy, hypertension, hyperlipidemia, obstructive sleep apnea, and systolic congestive heart failure with an EF of 15% with global hypokinesis. Reported to the ED with the onset of shortness of breath that began at 2300 last night. He came to the ED this a.m. to be evaluated and became hypotensive, 70/40s and was initiated on a Tramaine- Synephrine drip. Initial chest x-ray showed cardiomegaly and fine interstitial infiltrates suggesting interstitial pulmonary edema. They did an abdomen and pelvis CT that showed moderate to large volume ascites and diffuse mesenteric edema and cardiomegaly with mild edema at the bases. Unfortunately, they were unable to give him any Lasix secondary to his hypotension. We have consulted Cardiology to help us in this process to be able to diurese him. The patient is well known to Dr. Naik. PAST MEDICAL HISTORY: Per HPI. PAST SURGICAL HISTORY: None. 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 He moved to [place] in 2013. He was a 1 pack per day smoker. FAMILY HISTORY: Both parents are . Positive for hypertensive heart disease. ALLERGIES: No known drug allergies. HOME MEDICATIONS: Lipitor 40 mg p.o. daily, aspirin 81 mg p.o. daily, lisinopril 5 mg p.o. daily, Coreg 25 mg p.o. b.i.d., glipizide 2.5 mg p.o. daily, Pepcid 20 mg p.o. daily, methimazole mg p.o. t.i.d. REVIEW OF SYSTEMS: Twelve-point review of systems complete and negative except for those mentioned in HPI. He does report about a 10 pound weight gain, some swelling in his lower extremities as well as his abdomen. He does have some noticeable JVD. He does not report any chest pain. No fever. No chills. No cough. No nausea, vomiting, diarrhea. He does try to watch his salt intake as well as his soda intake. However, he does fall short on his water intake. PHYSICAL EXAMINATION: VITAL SIGNS: Temperature is 98 degrees, heart rate 78, respirations 14, blood pressure 101/79 on Tramaine-Synephrine, O2 saturation was 97% on room air. GENERAL: Mr. William is a pleasant 64-year-old gentleman who is sitting straight up in the bed in no acute distress. HEENT: Atraumatic, normocephalic. PERRL. NECK: Supple. Trachea midline. CARDIOVASCULAR: S1, S2 appreciated. No murmurs, gallops, rubs noted. He does have noticeable JVD, trace lower extremity edema. LUNGS: Bilateral breath sounds are clear. Decreased in the bases. GASTROINTESTINAL: Distended but nontender. Positive bowel sounds 4 quadrants. NEUROLOGIC: No focal deficits noted. PERTINENT DIAGNOSTIC DATA: Abdomen and pelvis CT, moderate to large volume ascites and diffuse mesenteric edema, cardiomegaly with mild edema at the lung bases. LABORATORY DATA: Sodium 135, creatinine 1.6. T bilirubin of 2.18. AST of 42, alkaline phosphatase 130, troponin of 44. ProBNP of 2620, albumin of 3.0. ASSESSMENT AND PLAN: 1. Acute on chronic systolic congestive heart failure exacerbation with a known ejection fraction of 15% with global hypokinesis. The patient's blood pressure failed to 70s/40s. He was started on a Tramaine-Synephrine drip. We consulted cardiology for assistance with diuresis. The patient states he was taken off a daily regimen of Lasix and he only takes it p.r.n. We initially wanted to put him on a dobutamine drip. Again, we will await for cardiology's recommendations. He is currently saturating well on room air. We have held his blood pressure medications until he can be evaluated by Cardiology. They are aware of the consult. We will do strict intakes and outputs, daily weights. 2. Known coronary artery disease with an intervention in August 2013 with a bare metal stent. Not complaining of any chest pain. 3. Hypertension. We are going to hold his antihypertensives for now. He is currently on Tramaine- Synephrine drip. 4. Hyperlipidemia. He does have some elevated liver function tests. We will hold his statin for now. 5. Obstructive sleep apnea. Aware. 6. Ascites as seen on abdomen and pelvis CT. It could be hepatorenal syndrome. I am not sure if there would be enough there to IR to tap. 7. Further recommendations to follow physician evaluation, laboratory and diagnostic data. Dictated by NICOLE Lange for Yuval Harrison MD cc: MD Byron Parson MD Neil Yeager, MD
--- NOTE | 2019-03-25 13:36 | CARDIOLOGY CONSULTATION ---
DATE: 03/25/2019 CHIEF COMPLAINT ON PRESENTATION: Shortness of breath. HISTORY OF PRESENT ILLNESS: Mr. 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 He reports earlier in the day and the days previous he felt just fine. He reports increasing abdominal distention. He reports compliance with his medications at home. However on review of his home medication list he is not on his thyroid medication that he was noted to be on previously at his last office visit on 02/26. He has no pain complaints. He has no lower extremity edema. PAST MEDICAL HISTORY: 1. Significant for paroxysmal atrial fibrillation that was diagnosed in the setting of acute thyroid toxicosis. 2. Coronary artery disease with last cardiac catheterization in October of 2018. At that time, he had a normal left main. The LAD was a long vessel with proximal calcifications of around 20 to 30 percent. Circumflex was a large codominant vessel. There is an OM1 that was a large long branching vessel with a patent proximal stent. The OM2 was a large long branching vessel occluded filling faintly by both [id number] and [id number] collaterals. It was unchanged from previous. The RCA was a small codominant vessel with diffuse irregularities. 3. Likely, thyroid induced cardiomyopathy with last ejection fraction of 15% with marked enlargement of the left ventricle. Moderate to severe TR. 4. Hypertension. 5. Hyperlipidemia. 6. Diabetes. 7. Thyroid toxicosis. SOCIAL HISTORY: Patient does not currently smoke. FAMILY HISTORY: Significant for hypertension. REVIEW OF SYSTEMS: A 10 system review of systems is negative except for those things mentioned in HPI. PHYSICAL EXAMINATION: He is afebrile. His heart rate is 83. Blood pressure 105/84. I have no I O data on the patient other than continent voids not measured. General: He is in no acute distress. HEENT: Oropharynx is moist. Poor dentition. Eye examination is pink conjunctivae. White sclerae. Neck: Examination shows no obvious thyromegaly or thyroid tenderness. Cardiovascular: He sounds to be in a regular rate and rhythm. He has no obvious murmurs. He has no S3. He has a laterally displaced PMI distended neck veins. He has cool distal extremities below the knee. Chest: Exam sounds clear bilaterally. He has no increased work of breathing. Abdomen: Protuberant. Distended. Fluid wave is identified, and no obvious tenderness. Skin: Warm and dry throughout with the exception of the distal lower extremities. Neurological: He is moving all extremities. He has no lateralizing deficits. PERTINENT DATA: EKG reviewed by me shows sinus rhythm. He has a rate of 79 beats per minute. He has anterior septal Q-waves. Abdomen and pelvis CT demonstrates a moderate to large volume of ascites with mesenteric edema. Cardiomegaly is noted with mild edema in the lung bases. He had a chest x-ray showing fine interstitial infiltrates suggesting interstitial edema. His echo last checked in 2018 that demonstrated a dilated left ventricle with a dimension of 5.7 cm, and an EF of 15%. His lab data demonstrates a white count of 8.5, his hematocrit is 51, and platelet count is 231,000. INR is 1.48. Sodium is 135, potassium is 4.5, BUN 15, and creatinine 1.6. His last creatinine in October was 1.3 with a August creatinine of 0.7. AST and ALT are 42 and 17 respectively with a T bilirubin of 2.1. His proBNP is 2620. His initial high sensitivity troponin is 44. TSH is pending. ASSESSMENT: Mr. 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 PLAN: He appears to be in the low output heart failure with cool extremities. We will initiate him on milrinone. We do not have any input and output data on the patient. I will initiate him on diuretics. He does not appear to be in any diuretics per his home regimen. I am unclear if he has been compliant because we have differing med lists item compared to when he was last in the office. We will try to add in afterload reduction in the patient as his pressure tolerates, but initially we will start him on Milrinone along with IV diuretics. cc: Byron Naik MD
[2019-03-25] MEDS: PRIMACOR 20 MG/D5W 100 ML 20 MG/100 ML IVPB IV SCH (14:50)
[2019-03-25] MEDS: HUMULIN R SUBQ SCH ×2 (16:00→20:25)
[2019-03-25] MEDS: LASIX IV SCH (20:25)
[2019-03-26] MEDS: PRIMACOR 20 MG/D5W 100 ML 20 MG/100 ML IVPB IV SCH ×4 (00:06→20:50)
[2019-03-26] MEDS: NEO-SYNEPHRINE 50 MG in NS 250 ML IV SCH (03:10)
[2019-03-26] MEDS: HUMULIN R SUBQ SCH ×4 (06:15→20:52)
[2019-03-26 06:28] LABS: BASO# 0.02 X1000 (0.0-0.2); BASO% 0.2 % (0.0-0.8); EOS# 0.08 X1000 (0.0-0.7); EOS% 0.9 % (0.0-10.0); HEMATOCRIT 45.4 % (42.0-52.0); HEMOGLOBIN 15.1 g/dL (14.0-18.0); IMM GRAN# 0.02 X1000 (0.0-0.04); IMM GRAN% 0.2 % (0.0-0.5); LYMPH% 23.3 % (20.5-51.1); MCH 31.2 PG (27-31); MCHC 33.3 g/dL (33-37); MCV 93.8 FL (81-99); MONO# 1.19 X1000 (0.11-0.59); MONO% 13.2 % (1.7-9.3); NEUT# 5.59 X1000 (1.4-6.5); NEUT% 62.2 % (42.2-75.2); PLT 273 X1000 (130-400); RBC 4.84 XMIL (4.7-6.1); RDW 17.9 % (11.5-14.5)
--- NOTE | 2019-03-26 06:49 | Diag Imaging Result Doc PS360 ---
CHEST-PORTABLE - 03/26/2019 INDICATION: chf COMPARISON: 03/25/2019 FINDINGS: There is been slight worsening in the fine interstitial infiltrates in the lung bases compatible with pulmonary edema. Stable significant cardiomegaly. No pleural effusion. IMPRESSION: Worsening pulmonary edema. Electronically signed by Jefry Montiel 03/26/2019 6:47 AM
[2019-03-26 06:53] LABS: AGAP 12; ALB/GLOB RATIO 0.7; ALBUMIN 2.8 g/dL (3.5-5.0); ALKALINE PHOSPHATASE 119 U/L (32-122); BUN 22 mg/dL (8-22); CHLORIDE 102 mmol/L (98-107); COSMO 275; CREATININE 1.4 mg/dL (0.7-1.2); ESTIMATED GFR > 60; GLUCOSE 99 mg/dL (70-104); GOT 34 U/L (10-34); GPT 16 U/L (10-44); MAGNESIUM 1.7 mg/dL (1.5-2.7); POTASSIUM 4.5 mmol/L (3.5-5.1); SODIUM 136 mmol/L (136-145); TCO2 22 mmol/L (25-35); TOTAL BILIRUBIN 2.28 mg/dL (0.20-1.00); TOTAL PROTEIN 6.7 g/dL (6.3-8.3)
--- NOTE | 2019-03-26 07:19 | PROGRESS NOTE ---
DATE: 03/26/2019 SUBJECTIVE: The patient seems to be resting comfortably. He is not complaining of too much shortness of breath compared with admission. Actually, he is not using the oxygen through the nasal cannula and on the monitor, the oxygen saturation is 94. He is answering my questions. He is not in respiratory distress. OBJECTIVE: Vital Signs: Temperature 97.1 degrees, pulse 82, respiratory rate on the monitor right now 20, blood pressure 91/62, oxygen saturation on the monitor 94 on room air. HEENT: Head normocephalic. No trauma. PERRLA. Neck: Supple. He has some JVD. Central trachea. Chest: Decreased breath sounds globally with coarse breath sounds at the bases. Some crepitus at the bases as well. Abdomen: Soft protuberant. He does have ascites. Extremities: No edema, no clubbing, no cyanosis. Neurological: The patient is awake and alert. She is oriented x3. No focal deficits. LABORATORY: Pending lab work at this moment. ASSESSMENT AND PLAN: 1. Acute on chronic congestive heart failure exacerbation, likely systolic. He does have an ejection fraction of 15% with global hypokinesis. The blood pressure seems to be better, but he is still on pressors. We will continue with same management for now. Cardiology Department following this patient and he has been placed also on diuretics and Milrinone. 2. History of coronary artery disease, aware. No chest pain at this moment. 3. Hypertension. He is on vasopressors right now, so we have been holding a little bit his blood pressure medication. 4. Hyperlipidemia. We are holding the statin at this moment because of his elevation of the liver function tests. 5. Obstructive sleep apnea. Aware. 6. Ascites seen on the abdomen and pelvis CT scan. We will monitor for now. cc: Yuval Harrison MD
--- NOTE | 2019-03-26 07:51 | EKG Report ---
Test Performed on : 03/26/2019 07:07:38 AM Test Reason : Heart Failure Admission Blood Pressure : / mmHG Vent. Rate : 080 BPM Atrial Rate : 080 BPM P-R Int : 172 ms QRS Dur : 076 ms QT Int : 416 ms P-R-T Axes : 075 -60 072 degrees QTc Int : 479 ms Normal sinus rhythm. Possible Left atrial enlargement Left anterior fascicular block Inferior infarct (cited on or before 19-AUG-2013) Anteroseptal infarct (cited on or before 13-MAR-2013) Abnormal ECG When compared with ECG of 25-MAR-2019 05:50, (Unconfirmed) No significant change was found Confirmed by Jonatan Raya MD ([id number]) on 03/26/2019 4:35:50 PM
[2019-03-26] MEDS: LASIX IV SCH ×2 (08:53→20:50)
[2019-03-26] MEDS: ASPIRIN PO SCH (08:54)
[2019-03-26] MEDS ORDERED: MAGNESIUM SULFATE 2 GM/S.W.I. 2 GM/50 ML IVPB IV ONE (14:00)
--- NOTE | 2019-03-26 20:46 | CARDIOLOGY PROGRESS NOTE ---
DATE: 03/26/2019 SUBJECTIVE: Mr. William reports a significant urine output over the last 12 to 24 hours. He continues to have a protuberant abdomen. PHYSICAL EXAMINATION: He is afebrile. His heart rates are in the 90s. His blood pressure is 118/81. His I's and O's thus far are -607 mL.General: He is in no acute distress. Cardiovascular: He is in a regular rate and rhythm. He has warm distal extremities. He has an elevated JVP. Chest: His chest exam sounds clear bilaterally. abdomen: Is protuberant, distended. Fluid wave is present. PERTINENT DATA: His sodium is 136, potassium 4.5 his BUN is 22, creatinine is 1.4. His T bilirubin is 2.2. His proBNP is 1588 which is down from 2620. ASSESSMENT: Mr. William is a 64-year-old black male with a likely combined ischemic and nonischemic cardiomyopathy. He does have a history of coronary disease with previous PCI but likely also had a prolonged period of untreated hyperthyroidism. PLAN: He has a marked reduction in his ejection fraction of around 15% in the past. He came in volume overloaded with cool extremities, suggesting a low output heart failure. He was placed on milrinone yesterday. I have increased his Lasix to 80 b.i.d. in an effort to increase his diuresis. He still on a low dose of phenylephrine, which we will try to wean. Hopefully, we can add back in some of his heart failure regimen in the future. Laboratories have been ordered for the morning. cc: Byron Naik MD
[2019-03-26] MEDS ORDERED: PRINIVIL PO SCH (21:00)
[2019-03-27] MEDS: HUMULIN R SUBQ SCH ×4 (06:13→21:34)
[2019-03-27 06:29] LABS: BASO# 0.02 X1000 (0.0-0.2); BASO% 0.2 % (0.0-0.8); EOS% 1.1 % (0.0-10.0); HEMATOCRIT 45.2 % (42.0-52.0); HEMOGLOBIN 15.3 g/dL (14.0-18.0); IMM GRAN# 0.02 X1000 (0.0-0.04); IMM GRAN% 0.2 % (0.0-0.5); LYMPH# 1.85 X1000 (1.2-3.4); LYMPH% 20.3 % (20.5-51.1); MCH 32.1 PG (27-31); MCHC 33.8 g/dL (33-37); MCV 94.8 FL (81-99); MONO% 14.3 % (1.7-9.3); NEUT# 5.83 X1000 (1.4-6.5); NEUT% 63.9 % (42.2-75.2); PLT 258 X1000 (130-400); RBC 4.77 XMIL (4.7-6.1); RDW 17.8 % (11.5-14.5); WBC 9.12 X1000 (4.8-10.8)
[2019-03-27] MEDS: PRIMACOR 20 MG/D5W 100 ML 20 MG/100 ML IVPB IV SCH ×2 (06:29→18:38)
[2019-03-27 07:05] LABS: AGAP 13; ALB/GLOB RATIO 0.7; ALKALINE PHOSPHATASE 126 U/L (32-122); BUN 21 mg/dL (8-22); CALCIUM 8.4 mg/dL (8.8-10.2); CHLORIDE 101 mmol/L (98-107); COSMO 281; CREATININE 1.3 mg/dL (0.7-1.2); ESTIMATED GFR > 60; GLUCOSE 99 mg/dL (70-104); GOT 34 U/L (10-34); GPT 16 U/L (10-44); MAGNESIUM 1.8 mg/dL (1.5-2.7); PHOSPHORUS 2.2 mg/dL (2.7-4.5); POTASSIUM 4.1 mmol/L (3.5-5.1); SODIUM 139 mmol/L (136-145); TCO2 25 mmol/L (25-35); TOTAL BILIRUBIN 2.02 mg/dL (0.20-1.00); TOTAL PROTEIN 7.2 g/dL (6.3-8.3)
[2019-03-27] MEDS: ASPIRIN PO SCH (08:08)
[2019-03-27] MEDS: LASIX IV SCH ×2 (08:12→21:30)
[2019-03-27] MEDS ORDERED: CORDARONE PO ONE (12:17)
[2019-03-27] MEDS ORDERED: PEPCID PO ONE (13:03)
--- NOTE | 2019-03-27 13:32 | PROGRESS NOTE ---
DATE: 03/27/2019 SUBJECTIVE: Patient is resting comfortably in bed. He has been having shortness of breath on and off but he seems to be more stable compared with admission. He has been having good urine output with the dose of Lasix that he has been getting from Cardiology Department. His kidney function seems to be stable as well. He is no longer on pressors. We have a negative balance of 4.3 L. OBJECTIVE: Vital Signs: Temperature 97.6 degrees, pulse 91, respiratory rate 12, blood pressure 109/84, oxygen saturation 98 on 2 L of nasal cannula. HEENT: Head normocephalic, no trauma. PERRLA. Neck: Supple. He has some JVD central trachea. Chest: Decreased breath sounds with coarse breath sounds at the bases. Some crepitus at the bases as well. Abdomen: Soft, protuberant. He does have some ascites. Extremities: No edema, no clubbing, no cyanosis. Neurological: Patient is awake he is oriented x3. No focal deficits. LABORATORY: WBC 9.1, hemoglobin 15.3, hematocrit 45.2, platelets 258,000. Sodium 139, potassium 4.1, chloride 201, bicarbonate 25, BUN 21, creatinine 1.3, glucose 99, calcium 8.4, phosphorus 2.2, albumin 3. ASSESSMENT AND PLAN: 1. Acute on chronic congestive heart failure exacerbation, systolic. He does have an ejection fraction of 15% with global hypokinesis. The blood pressure seems to be better. He is not longer on pressors. He is no longer on pressors. We will continue with same management for now. Cardiology Department on board. Continue with Milrinone. 2. History of coronary artery disease, aware. No chest pain at this moment. 3. Hypertension, actually we are holding blood pressure medication at this moment because of his hypotension which is much better now. 4. Hyperlipidemia. We are holding the statins because of the elevated liver function tests. 5. Ascites seen on the abdomen and pelvis CT scan. We will monitor. We are diuresing this patient. 6. Combined ischemic and nonischemic cardiomyopathy, aware. CRITICAL CARE TIME: 35 minutes. cc: Yuval Harrison MD
[2019-03-27] MEDS: PEPCID PO SCH (21:30)
[2019-03-27] MEDS: PRINIVIL PO SCH (21:31)
[2019-03-27] MEDS: LIPITOR PO SCH (21:31)
[2019-03-27] MEDS: COREG PO SCH (21:32)
[2019-03-28] MEDS: PRIMACOR 20 MG/D5W 100 ML 20 MG/100 ML IVPB IV SCH ×2 (05:29→16:58)
[2019-03-28] MEDS: HUMULIN R SUBQ SCH ×4 (06:07→20:27)
[2019-03-28 06:56] LABS: AGAP 9; BUN 18 mg/dL (8-22); CALCIUM 8.9 mg/dL (8.8-10.2); CHLORIDE 99 mmol/L (98-107); COSMO 274; CREATININE 1.3 mg/dL (0.7-1.2); ESTIMATED GFR > 60; GLUCOSE 101 mg/dL (70-104); POTASSIUM 4.2 mmol/L (3.5-5.1); SODIUM 136 mmol/L (136-145); TCO2 28 mmol/L (25-35)
--- NOTE | 2019-03-28 07:15 | Diag Imaging Result Doc PS360 ---
EXAM: CHEST-PORTABLE 03/28/2019 HISTORY: dyspnea TECHNIQUE: AP portable at 0527 COMMENT: There is retrocardiac alveolar opacity in the left lower lobe. There is generalized increased interstitial opacity in both lung bases. The heart size is slightly enlarged but appears somewhat smaller than on the previous study of 03/26/2019. IMPRESSION: Pulmonary edema. Cardiomegaly. Left lower lobe pneumonia. Electronically signed by Raj Richardson 03/28/2019 7:12 AM
--- NOTE | 2019-03-28 08:57 | PROGRESS NOTE ---
DATE: 03/28/2019 SUBJECTIVE: Patient is resting comfortably in bed. We have placed this patient back on most of his home medications. He is still having some SVT during the night. Dr. Beasley gave him some amiodarone yesterday for that. I will put this patient back on methimazole 3 times a day, which is his home medication for the hyperthyroidism. We have a negative urine balance of 7.6 L. His chest x-ray showed the possibility of pneumonia but this patient is not having fever, chills, or cough so I will not start any antibiotic at this moment. OBJECTIVE: Vital Signs: Temperature 97.9 degrees, pulse 83, respiratory rate 14, blood pressure 100/70, oxygen saturation 95% on 2 L of nasal cannula. HEENT: Head normocephalic. No trauma. PERRLA. Neck: Supple. No JVD. No masses. Central trachea. Chest: Decreased breath sounds with coarse breath sounds at the bases. Some crepitus at the bases as well. Crackles on the left. Abdomen: Soft, protuberant. He does have some ascites. Extremities: No edema, no clubbing, no cyanosis. Neurological Examination: The patient is alert, awake. He is following commands. No deficits. Laboratory: Sodium 136, potassium 4.2, chloride 99, bicarbonate 28, BUN 18, creatinine 1.3, glucose 94, calcium 8.9. ASSESSMENT AND PLAN: 1. Acute on chronic congestive heart failure exacerbation, systolic. He does have an ejection fraction of 15% with global hypokinesis. His blood pressure seems to be better. He is no longer on vasopressors. He is still on milrinone, which I will continue. 2. History of coronary artery disease, aware. No chest pain at this moment. 3. Hypertension. Actually, this is stable. Cardiology department has placed this patient back on Coreg and lisinopril. 4. Ascites on the abdominal and pelvic CT scan. We will monitor. Continue with diuresis. 5. Hyperthyroidism. Continue with methimazole. 6. Combined ischemic and nonischemic cardiomyopathy. Aware. cc: Yuval Harrison MD
[2019-03-28] MEDS: CORDARONE PO SCH (09:42)
[2019-03-28] MEDS: PEPCID PO SCH ×2 (09:42→20:26)
[2019-03-28] MEDS: PRINIVIL PO SCH ×2 (09:42→20:28)
[2019-03-28] MEDS: ASPIRIN PO SCH (09:42)
[2019-03-28] MEDS: COREG PO SCH ×2 (09:42→20:26)
[2019-03-28] MEDS: TAPAZOLE PO SCH ×3 (09:42→20:26)
[2019-03-28] MEDS: LASIX IV SCH ×2 (09:44→20:24)
[2019-03-28] MEDS: LIPITOR PO SCH (20:25)
[2019-03-29] MEDS: PRIMACOR 20 MG/D5W 100 ML 20 MG/100 ML IVPB IV SCH ×3 (03:43→20:43)
[2019-03-29 05:54] LABS: HEMATOCRIT 45.3 % (42.0-52.0); HEMOGLOBIN 15.7 g/dL (14.0-18.0); MCHC 34.7 g/dL (33-37); MCV 95.2 FL (81-99); MPV 11.1 FL (7.4-10.4); RBC 4.76 XMIL (4.7-6.1); RDW 17.4 % (11.5-14.5); WBC 7.55 X1000 (4.8-10.8)
[2019-03-29] MEDS: HUMULIN R SUBQ SCH ×3 (06:13→16:25)
--- NOTE | 2019-03-29 08:27 | PROGRESS NOTE ---
DATE: 03/29/2019 SUBJECTIVE: The patient is resting comfortably in bed. He seems to be more stable. He is still on the Milrinone drip. Cardiology Department following this patient closely. I do believe he can go to a stepdown unit like [facility] with this drip. I will let Cardiology Department make that decision. We have a negative balance of 9.6 L pending BMP at this moment. OBJECTIVE: Vital Signs: Temperature 98 degrees, pulse 73, respiratory rate 20, blood pressure 91/61, oxygen saturation 96 on room air. HEENT: Head normocephalic, no trauma. PERRLA. Neck: Supple. No JVD. No masses. Central trachea. Chest: Some coarse breath sounds at the bases with crepitus at the bases as well, but much better. Abdomen: Soft, protuberant. Positive bowel sounds. Extremities: No edema, no clubbing, no cyanosis. Neurological examination: The patient is completely alert, awake and oriented x3. No focal deficits. LABORATORY: WBC 7.5, hemoglobin 15.7, hematocrit 45.3, platelets 276. Glucose 112. ProBNP 691 pending BMP. ASSESSMENT AND PLAN: 1. Acute on chronic congestive heart failure exacerbation, systolic. He has an ejection fraction of 15% with global hypokinesis. Blood pressure is still borderline low. He is no longer on vasopressors. He is still on Milrinone, which I will continue for now. I will let Cardiology Department make changes. 2. History of coronary artery disease, aware. No chest pain at this moment. It is combined ischemic and nonischemic cardiomyopathy. 3. Hypertension. Actually, he seems to be stable. He is getting Coreg and lisinopril per Cardiology Department. 4. Ascites on the abdominal and pelvic CT scan. Continue with diuretics. 5. Hyperthyroidism. Continue with methimazole which is part of his home medications. cc: Yuval Harrison MD
[2019-03-29] MEDS: COREG PO SCH ×2 (08:36→20:38)
[2019-03-29] MEDS: CORDARONE PO SCH (08:36)
[2019-03-29] MEDS: LASIX IV SCH ×2 (08:36→20:38)
[2019-03-29] MEDS: PRINIVIL PO SCH ×2 (08:36→20:38)
[2019-03-29] MEDS: PEPCID PO SCH ×2 (08:36→20:38)
[2019-03-29] MEDS: ASPIRIN PO SCH (08:36)
[2019-03-29] MEDS: TAPAZOLE PO SCH ×3 (08:45→20:38)
[2019-03-29] MEDS: LIPITOR PO SCH (20:38)
--- NOTE | 2019-03-29 21:05 | CARDIOLOGY PROGRESS NOTE ---
DATE: 03/29/2019 SUBJECTIVE: Mr. William reports he feels much better today. He is not having any orthopnea. He says his abdominal distention has improved significantly. No pain. PHYSICAL EXAMINATION: Vital signs: He is afebrile. His heart rate is in the 60s to 70s. His blood pressure has had some lows, anywhere from the 70s to the 90s systolic. General: He is in no acute distress. Cardiovascular: He sounds to be in a regular rate and rhythm. He has no murmurs. He has warm and well perfused extremities with no edema. His JVP is less than 8. Chest: Clear bilaterally. He has no increased work of breathing. Abdomen: Soft, nontender. PERTINENT DATA: White count 7.5, hematocrit 45, platelet count 276,000. ProBNP is 691. ASSESSMENT: Mr. William is a 64-year-old gentleman with a nonischemic cardiomyopathy. PLAN: We will decrease his milrinone. We will continue on his other medications. Presently, he is not a candidate for addition of further heart failure medications. We will recheck laboratories in the morning. cc: Byron Naik MD
[2019-03-30] MEDS: HUMULIN R SUBQ SCH ×5 (00:28→22:00)
[2019-03-30] MEDS: PRIMACOR 20 MG/D5W 100 ML 20 MG/100 ML IVPB IV SCH (00:28)
--- NOTE | 2019-03-30 06:35 | PROGRESS NOTE ---
DATE: 03/30/2019 SUBJECTIVE: Mr. William was admitted on 03/25/2019. Rope Rider is Dr. Byron Naik, and primary care is Dr. Bubba Allen. A 64-year-old black male with a Past Medical History of coronary artery disease, cardiomyopathy, hypertension, hyperlipidemia, obstructive sleep apnea, systolic congestive heart failure with ejection fraction of 15% with global hypokinesis. He reported to the emergency room with shortness of breath that began at 23:00 the night before. He reported on 03/25/2019 he came in the emergency room and became hypotensive. His blood pressure was 70 over 40s, and initiated on Tramaine-Synephrine. Initial chest x-ray showed some cardiomegaly and fine interstitial infiltrates suggesting interstitial pulmonary edema. They did an abdominal and pelvic CT that showed moderate to large ascites, diffuse mesenteric edema, and cardiomegaly with mild edema at the bases. Unfortunately, they were unable to give him any Lasix secondary to hypotension so he was admitted. He has showed significant improvement, and breathing is improved. OBJECTIVE: Today, he says he feels good. He had a good night's sleep. Remains afebrile, temperature 97.7 degrees, pulse 70, respirations 16, and blood pressure 103/73. Pupils are equal and round. Lungs are clear in all lung weaver. Cardiovascular exam with regular rhythm and rate without murmur or S3. LABORATORY: Urine output was 5200 mL. Blood sugars 112, 112, and 92. ASSESSMENT/PLAN: 1. Acute on chronic congestive heart failure exacerbation with systolic heart failure. Ejection fraction was 15%. Global hypokinesis. Blood pressure still borderline low, no longer on vasopressors. He is still on Milrinone, which he will continue. Cardiology following. 2. History of coronary artery disease. No chest pain reported. He has combined ischemic and nonischemic cardiomyopathy. 3. Hypertension. He is stable. Getting Coreg and lisinopril. 4. Ascites on the abdominal pelvic CT so continue diuretics. 5. Hypothyroidism. Continue his methimazole as part of his home medications. LIST OF MEDICATIONS AND ORDERS: 1. Lipitor 40 mg at bedtime. 2. Cordarone 400 mg daily. 3. Aspirin 81 mg a day. 4. Pepcid 20 mg b.i.d. 5. Lasix 80 mg IV b.i.d. 6. Lisinopril 20 mg b.i.d. 7. Tapazole or methimazole 10 mg p.o. I think he is taking that 3 times a day. 8. Milrinone drip 20 mg in 100 mL. He is getting 0.375 mcg/kg per minute. REVIEW OF LABORATORY: Review of his labs from yesterday, white count 7550, hematocrit 45, and platelet count is 276,000. Blood sugars have been 80, 98, 112, and 92. His last basic metabolic profile was on 03/28/2019. Sodium 136, potassium 4.2, chloride 99, BUN 18, and creatinine 1.3. cc: Kai Lauren MD
[2019-03-30 07:59] LABS: AGAP 14; ALB/GLOB RATIO 0.6; ALBUMIN 3.1 g/dL (3.5-5.0); ALKALINE PHOSPHATASE 131 U/L (32-122); BUN 25 mg/dL (8-22); CALCIUM 8.6 mg/dL (8.8-10.2); CHLORIDE 98 mmol/L (98-107); COSMO 276; CREATININE 1.3 mg/dL (0.7-1.2); ESTIMATED GFR > 60; GLUCOSE 91 mg/dL (70-104); GOT 35 U/L (10-34); GPT 20 U/L (10-44); PHOSPHORUS 3.2 mg/dL (2.7-4.5); POTASSIUM 4.1 mmol/L (3.5-5.1); SODIUM 136 mmol/L (136-145); TCO2 24 mmol/L (25-35); TOTAL BILIRUBIN 1.69 mg/dL (0.20-1.00)
[2019-03-30] MEDS: ASPIRIN PO SCH (08:25)
[2019-03-30] MEDS: PEPCID PO SCH ×2 (08:25→21:40)
[2019-03-30] MEDS: LASIX IV SCH (08:25)
[2019-03-30] MEDS: TAPAZOLE PO SCH ×3 (08:25→22:00)
[2019-03-30] MEDS: CORDARONE PO SCH (08:25)
[2019-03-30] MEDS: PRINIVIL PO SCH ×2 (08:26→21:40)
[2019-03-30] MEDS: COREG PO SCH ×2 (08:26→21:40)
--- NOTE | 2019-03-30 20:16 | CARDIOLOGY PROGRESS NOTE ---
DATE: 03/30/2019 SUBJECTIVE: Mr. William has no complaints today. He reports he feels much better. He is tolerating oral intake. PHYSICAL EXAMINATION: Vital Signs: Afebrile. Heart rate 64, blood pressure 87/53. His systolics have been anywhere from the 80s to the 100s. His I Os continue to be negative. He has a negative output of 12 L. General: He is in no acute distress. Cardiovascular: He sounds to be in a regular rate and rhythm. He has no murmurs, no S3. His JVP is not elevated. Chest: Clear bilaterally. No increased work of breathing. Abdomen: Soft, nontender. PERTINENT DATA: Sodium 136, potassium 4.1, BUN 25, creatinine is 1.3. His T-bili is 1.7 which is down from previous. His albumin is 3.1. His magnesium level is 2.0. ASSESSMENT: Mr. William is a 64-year-old gentleman with cardiomyopathy. PLAN: I will stop his IV Lasix. He is off milrinone. We will place him on Lasix 80 mg p.o. daily with 12.5 of spironolactone as well. Hopefully, we can get him discharged tomorrow. We will recheck laboratories in the morning. cc: Byron Naik MD
[2019-03-30] MEDS: LIPITOR PO SCH (21:40)
[2019-03-31] MEDS: HUMULIN R SUBQ SCH ×4 (06:14→21:37)
[2019-03-31 06:44] LABS: AGAP 11; BUN 29 mg/dL (8-22); CALCIUM 8.7 mg/dL (8.8-10.2); CHLORIDE 95 mmol/L (98-107); COSMO 267; CREATININE 1.4 mg/dL (0.7-1.2); ESTIMATED GFR > 60; GLUCOSE 98 mg/dL (70-104); MAGNESIUM 1.9 mg/dL (1.5-2.7); POTASSIUM 4.4 mmol/L (3.5-5.1); SODIUM 130 mmol/L (136-145); TCO2 24 mmol/L (25-35)
[2019-03-31] MEDS: TAPAZOLE PO SCH ×3 (08:32→21:36)
[2019-03-31] MEDS: ASPIRIN PO SCH (08:32)
[2019-03-31] MEDS: PEPCID PO SCH ×2 (08:32→21:36)
[2019-03-31] MEDS: COREG PO SCH ×2 (08:32→21:36)
[2019-03-31] MEDS: CORDARONE PO SCH (08:33)
[2019-03-31] MEDS: PRINIVIL PO SCH ×2 (08:33→21:36)
[2019-03-31] MEDS ORDERED: LASIX PO SCH ×2 (09:00→21:00)
[2019-03-31] MEDS ORDERED: ALDACTONE PO SCH (09:00)
[2019-03-31] MEDS ORDERED: SAMSCA PO ONE (11:06)
[2019-03-31] MEDS ORDERED: MAGNESIUM SULFATE 2 GM/S.W.I. 2 GM/50 ML IVPB IV ONE (11:18)
--- NOTE | 2019-03-31 13:24 | PROGRESS NOTE ---
DATE: 03/31/2019 SUBJECTIVE: Mr. William says he is feeling better, breathing comfortably. OBJECTIVE: Vital Signs: Remains afebrile, temperature 98.3 degrees, pulse 78, respirations 14, blood pressure 98/69. HEENT: Pupils are equal and round. Lungs: Clear in all lung weaver. Cardiovascular: Regular rhythm and rate without murmur or S3. Abdomen: Soft. Skin: Warm and dry. Urine output was 1800 mL. ASSESSMENT AND PLAN: 1. A 64-year-old gentleman with cardiomyopathy. They have stopped the Lasix. He is off the Milrinone. Going to place him on Lasix 80 mg by mouth daily, and 12.5 mg of spironolactone as well in hopes that maybe we can discharge him tomorrow. 2. History of coronary artery disease. No chest pain or active ischemia at this time. 3. Hypertension. Aware. 4. Ascites per abdomen and pelvic CTs. Will continue his present diuretics. 5. Hypothyroidism. My hope is that he can go home tomorrow. REVIEW OF LAB: Today, sodium 130, potassium 4.4, chloride 95, BUN 29, creatinine 1.4, which is stable. cc: Kai Lauren MD
--- NOTE | 2019-03-31 19:09 | CARDIOLOGY PROGRESS NOTE ---
DATE: 03/31/2019 SUBJECTIVE: Mr. William has no complaints today. He denies any orthopnea. He is tolerating oral intake. PHYSICAL EXAMINATION: Afebrile. Heart rate 78, blood pressure 93/69. His I's and O's were a little bit more matched on the 12th. He had a slight positive intake of 50 mL. He is still -12 L for the course of the hospitalization.General: He is in no acute distress. Cardiovascular: He is in a regular rate and rhythm. He has no murmurs. He has no S3. He has warm and well perfused extremities. Chest: Exam is clear bilaterally. He has no increased work of breathing. Abdomen: Is soft, nontender. PERTINENT DATA: His sodium 130 potassium 4.4, BUN 29 creatinine is 1.4. His magnesium level is 1.9. His proBNP is 1029. ASSESSMENT: Mr. William is a 64-year-old male with a likely nonischemic cardiomyopathy. PLAN: I will increase his Lasix to 80 b.i.d. I will changes spironolactone 25 mg daily and give him a 1 time dose of Samsca today. We will recheck labs in the morning and hopefully will be in a better position for discharge. cc: Byron Naik MD
[2019-03-31] MEDS: LIPITOR PO SCH (21:36)
[2019-04-01] MEDS: HUMULIN R SUBQ SCH ×2 (06:37→11:20)
[2019-04-01 07:56] LABS: CREATININE 1.6 mg/dL (0.7-1.2); MAGNESIUM 2.1 mg/dL (1.5-2.7); POTASSIUM 4.7 mmol/L (3.5-5.1)
[2019-04-01] MEDS: ASPIRIN PO SCH (08:59)
[2019-04-01] MEDS: PRINIVIL PO SCH (08:59)
[2019-04-01] MEDS: CORDARONE PO SCH (08:59)
[2019-04-01] MEDS: TAPAZOLE PO SCH (08:59)
[2019-04-01] MEDS: COREG PO SCH (08:59)
[2019-04-01] MEDS: PEPCID PO SCH (08:59)
[2019-04-01] MEDS ORDERED: LASIX PO SCH (09:00)
[2019-04-01] MEDS ORDERED: ALDACTONE PO SCH (09:00)
[2019-04-01 12:04] VITALS: BP 92/68
--- NOTE | 2019-04-01 12:35 | DISCHARGE SUMMARY ---
ADMISSION DATE: 03/25/2019 DISCHARGE DATE: 04/01/2019 HISTORY OF PRESENT ILLNESS: This is a 64-year-old patient of Dr. Ken Allen. Came in with shortness of breath. His surgical services asst is Dr. Byron Naik. A 64-year-old, black male with a past medical history of coronary artery disease, cardiomyopathy, hypertension, hyperlipidemia, obstructive sleep apnea, and systolic congestive heart failure with ejection fraction of 15% with global hypokinesis. Reported to the emergency room with onset of shortness of breath that began about 2300 the evening before. He came into the emergency room the morning of 03/25/2019, evaluated him. He became hypotensive with a blood pressure of 70/40. He was initiated on Tramaine- Synephrine for a short time. Initial chest x-ray showed cardiomegaly and fine interstitial infiltrates suggesting interstitial pulmonary edema. They did an abdominal and pelvic CT that showed moderate large volume ascites and diffuse mesenteric edema, and cardiomegaly, mild edema at the bases. Unfortunately, unable to give him any Lasix because of his hypotension. A consult for cardiology was put in. His surgical services asst is Dr. Naik. ADMISSION DIAGNOSES: 1. Acute on chronic systolic congestive heart failure exacerbation. He has a known ejection fraction of 15% with global hypokinesis. The patient's blood pressure fell to 70s/30s. He was started for short time on a Tramaine-Synephrine drip and admitted up to [facility]. He has known underlying coronary artery disease. Intervention done in August of 2013 with a bare metal stent. Not complaining of any chest pain. No sign of active ischemia when he came in. 2. Hypertension. At the present time, he was hypotensive and on a Tramaine-Synephrine drip. 3. Hyperlipidemia. 4. History of obstructive sleep apnea. 5. Some ascites seen on abdominal and pelvic CT. HOSPITAL COURSE: Cardiology was consulted. Dr. Naik evaluated. 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 He seems to be in low output heart failure with cool extremities and initiated some milrinone and initiated him on some diuretics. He showed steady improvement. He had a chest x-ray on 03/28/2019, pulmonary edema, questionable left lower lobe infiltrate. Clinically, he continued to improve and he was taken off the milrinone, placed him on Lasix 80 mg p.o. daily, and spironolactone 12.5 mg daily. He was wanting to be discharged so plan to discharge him on 04/01/2019. Discharged on amiodarone 200 mg p.o. daily, aspirin 81 mg a day, Lipitor 40 mg a day, Coreg 12.5 mg b.i.d., Pepcid 20 mg b.i.d., Lasix 80 mg p.o. twice a day, Prinivil 20 mg p.o. twice a day. Actually, I think the plan is to cut his Lasix down to just 80 mg once a day and his Aldactone will be 25 mg once a day. His Tapazole will be 10 mg 3 times a day for his hyperthyroidism and he needs followup with his thyroid profile in another 4 weeks and followup with cardiology in a couple weeks. cc: Kai Lauren MD
--- NOTE | 2019-04-01 17:53 | CARDIOLOGY PROGRESS NOTE ---
DATE: 04/01/2019 SUBJECTIVE: Mr. William reports he is doing well. He has no orthopnea. OBJECTIVE: Vital signs: He is afebrile. Heart rate 73, blood pressure 94/70. His I's and O's are negative 2.2 L over the last 24 hours. That puts him at 14.9 L negative for the hospitalization. General: He is in no acute distress. Cardiovascular: He is in a regular rate and rhythm. He has warm and well perfused extremities. Chest: Clear bilaterally. He has no increased work of breathing. Abdomen: Protuberant but soft, nontender. PERTINENT DATA: His sodium is 136, potassium 4.7, BUN 38, creatinine is 1.6. His proBNP is 1,234. ASSESSMENT: Mr. William is a 64-year-old male with a nonischemic cardiomyopathy. PLAN: He has had escalation of his medications. We have him on Lasix 80 mg b.i.d. He is back on his lisinopril dose. He is on spironolactone 25 mg daily which is a new medication for him. It would seem reasonable at this point to discharge him. I will arrange for an outpatient basic metabolic panel next week to monitor his kidney function. cc: Byron Naik MD
== END 2019-04-01 13:41 | disposition home or self-care (01) | DRG 292 ==
LOC: ED 05:38 → EDIPHOLD 09:43 → SUATTDRO 09:43 → ICU 13:34 → 2N 03-29 19:06
PROVIDERS: ATTEND Emergency Medicine